=== PATIENT | female | born 1990 | race Hispanic/Latino ===

== ENCOUNTER 2021-11-11 15:14 | Outpatient (CLI) | payer OTHER | END 2021-11-11 15:15 | disposition home or self-care (01) | LOC: BICCT 15:14 | PROVIDERS: ATTEND Otolaryngology Plastic Surgery within the Head & Neck | DX: J34.2 Deviated nasal septum (principal); Q36.9 Cleft lip, unilateral; H04.551 Acquired stenosis of right nasolacrimal duct ==

== ENCOUNTER 2021-12-10 15:51 | Outpatient (CLI) | payer OTHER ==
[2021-12-10 16:43] LABS: BHCG - Serum Negative (NEGATIVE); Pregs Control Background? CLEAR/WHITE (CLR/WHITE); Pregs Control Bar Appear? YES (CONTROL BAR)
== END 2021-12-10 15:52 | disposition home or self-care (01) ==
LOC: LABBT 15:51
PROVIDERS: ATTEND Otolaryngology Plastic Surgery within the Head & Neck
DX: Z01.812 Encounter for preprocedural laboratory examination (principal); J34.2 Deviated nasal septum; R09.81 Nasal congestion; J34.3 Hypertrophy of nasal turbinates; Z20.822 Contact with and (suspected) exposure to COVID-19; R60.0 Localized edema; Q89.9 Congenital malformation, unspecified; Q36.9 Cleft lip, unilateral; J30.9 Allergic rhinitis, unspecified; S09.93XD Unspecified injury of face, subsequent encounter; J34.89 Other specified disorders of nose and nasal sinuses
CPT/HCPCS: 84703; 85014; 87811

== ENCOUNTER 2021-12-15 07:57 | Day surgery (SDC) | payer OTHER ==
[2021-12-14 09:51] VITALS: BMI 24.3
[2021-12-15] MEDS ORDERED: Oxymetazoline HCl 0.05% (30 ML BOT) ONE ×3 (08:38→13:02)
[2021-12-15] MEDS ORDERED: Lidocaine 1% w/Epinephrine 1:100K 20 ML VIAL ONE (09:56)
[2021-12-15] MEDS ORDERED: Bacitracin Zinc Ointment 30 gm TUBE ONE (09:56)
[2021-12-15] MEDS ORDERED: fentaNYL Citrate/PF 100 MCG/2 ML SYRINGE ONE (10:04)
[2021-12-15] MEDS ORDERED: Midazolam HCl 2 mg/2 ml Vial ONE (10:04)
[2021-12-15] MEDS ORDERED: Ondansetron PF 4 MG/2 ML Vial ONE (10:07)
[2021-12-15] MEDS ORDERED: Lidocaine 1% PF 5 ML VIAL ONE (10:07)
[2021-12-15] MEDS ORDERED: Dexamethasone 20 MG/5 ML VIAL ONE (10:07)
[2021-12-15] MEDS ORDERED: PROPOFOL 200 MG/20 ML VIAL ONE (10:07)
[2021-12-15] MEDS ORDERED: Fentanyl 100 MCG/2 ML VIAL ONE ×2 (10:58→11:25)
[2021-12-15] MEDS ORDERED: hydrALAZINE 20 MG/ML VIAL ONE (11:54)
[2021-12-15] MEDS ORDERED: Hydrocodone-Acetamin 15 ML UDCUP ONE (12:15)
== END 2021-12-15 13:55 | disposition home or self-care (01) ==
LOC: SDC 07:57
PROVIDERS: ATTEND Otolaryngology Plastic Surgery within the Head & Neck
PROC: 09SM0ZZ Reposition Nasal Septum, Open Approach (ICD-10-PCS; principal; 2021-12-15)
PROC: 09TL8ZZ Resection of Nasal Turbinate, Via Natural or Artificial Opening Endoscopic (ICD-10-PCS; principal; 2021-12-15)
DX: J34.2 Deviated nasal septum (principal); J34.3 Hypertrophy of nasal turbinates; J34.89 Other specified disorders of nose and nasal sinuses
CPT/HCPCS: J0360; J1100; J2250; J2405; J2704; J3010

== ENCOUNTER 2021-12-18 20:49 | Emergency (ER) | payer OTHER ==
[2021-12-18] MEDS ORDERED: Oxymetazoline HCl 0.05% (30 ML BOT) ONE (20:56)
[2021-12-18] MEDS ORDERED: Tranexamic Acid 1,000 MG/10 ML VIAL ONE (20:56)
== END 2021-12-18 21:17 | disposition home or self-care (01) ==
LOC: ERS 20:49
DX: R04.0 Epistaxis (principal)
CPT/HCPCS: 99283

== ENCOUNTER 2022-07-29 08:25 | Emergency (ER) | payer OTHER | END 2022-07-29 09:41 | disposition home or self-care (01) | LOC: ERS 08:25 | DX: M25.511 Pain in right shoulder (principal) ==

== ENCOUNTER 2023-04-12 13:53 | Outpatient (CLI) | payer OTHER | END 2023-04-12 13:54 | disposition home or self-care (01) | LOC: BICRAD 13:53 | PROVIDERS: ATTEND Family Medicine | DX: S99.922A Unspecified injury of left foot, initial encounter (principal) ==

== ENCOUNTER 2025-02-09 08:49 | Emergency (ER) | payer OTHER ==
[2025-02-09] MEDS ORDERED: Ketorolac Tromethamine 30 MG (1 mL) VIAL ONE (09:42)
[2025-02-09] MEDS ORDERED: Ondansetron PF 4 MG/2 ML Vial ONE (09:42)
[2025-02-09 09:47] LABS: #Basophils 0.07 10x3/uL (0.0-0.2); #Eosinophils 0.17 10x3/uL (0.0-0.7); #Monocytes 0.66 10x3/uL (0.11-0.59); #Neutrophils 5.92 10x3/uL (1.40-6.50); %Basophils 0.8 % (0.0-1.0); %Eosinophils 1.8 % (0.0-10.0); %Lymphocytes 25.5 % (21.0-51.0); %Monocytes 7.2 % (0.0-10.0); %Neutrophils 64.2 % (42.0-75.0); Hematocrit 42.0 % (36.0-47.0); Hemoglobin 14.3 g/dL (12.0-16.0); Mean Corpuscular Hemoglobin 31.5 pg (27.0-31.0); Mean Corpuscular Volume 92.5 fL (78.0-98.0); Platelet Count 334 10x3/uL (130-400); Red Blood Cell (RBC) Count 4.54 mill/uL (4.20-5.40); White Blood Cell (WBC) Count 9.22 10x3/uL (4.8-10.8)
[2025-02-09 10:05] LABS: ALT (SGPT) 18 U/L (Less than 34); AST (SGOT) 38 U/L (11-34); Albumin 4.5 g/dL (3.1-4.5); Alkaline Phosphatase 93 U/L (40-110); Anion Gap 13 mmol/L (10-20); BUN (Urea Nitrogen) 9 mg/dL (7.0-18.7); Bilirubin, Total 0.6 mg/dL (0.3-1.2); Calc. Creatinine Clearance 0 mL/min (70-130); Calcium 9.2 mg/dL (7.8-10.44); Carbon Dioxide 22 mmol/L (22-29); Chloride 103 mmol/L (98-107); Globulin 3.3 g/dL (2.4-3.5); Glucose 87 mg/dL (70-105); Lipase 16 U/L (8-78); Potassium 3.9 mmol/L (3.5-5.1); Sodium 134 mmol/L (136-145)
[2025-02-09 10:18] LABS: Bacteria/HPF None Seen HPF (None Seen); CAUTI Indications for Culture Acute Hematuria; Glucose, Urine (Dipstick) Normal (Negative); Leukocyte Negative Leu/uL (Negative); Protein, Urine (Dipstick) Negative (Neg-Trace); RBC/HPF 0-3 HPF (0-3); Specific Gravity, Urine 1.009 (1.002-1.036); WBC/HPF 0-3 HPF (0-3)
[2025-02-09 10:25] LABS: Urine Culture Reflex No No
== END 2025-02-09 11:56 | disposition home or self-care (01) ==
LOC: ERS 08:49
DX: K29.00 Acute gastritis without bleeding (principal); R11.2 Nausea with vomiting, unspecified
CPT/HCPCS: 76705; 80053; 81001; 83690; 85025; 96374; 96375; J1885; J2405